=== PATIENT | male | born 1975 | race Caucasian/White ===

== ENCOUNTER → 2021-12-12 | Outpatient (CLI) | payer OTHER | LOC: M WHC 07:29 | PROVIDERS: ATTEND Family Medicine | DX: R94.5 Abnormal results of liver function studies (principal) ==

== ENCOUNTER → 2022-01-08 | Outpatient (CLI) | payer OTHER ==
[~2022-01-08] MED LIST: CETI-24 PO; FAMO40TA3 PO; MULT-40 PO; OMEP-173 PO
== END ==
LOC: M PLALAB 14:47
PROVIDERS: ATTEND Family Medicine
DX: A53.9 Syphilis, unspecified (principal)
CPT/HCPCS: 36415; 86592; 86780; 96372; J0561

== ENCOUNTER → 2022-01-10 | Outpatient (CLI) | payer OTHER | LOC: M LABSMTC 10:02 | PROVIDERS: ATTEND Anesthesiology | DX: Z01.812 Encounter for preprocedural laboratory examination (principal); Z20.822 Contact with and (suspected) exposure to COVID-19 ==

== ENCOUNTER 2022-01-15 08:43 | Day surgery (SDC) | payer OTHER ==
[~2022-01-15] VITALS: Ht 182.9 cm; Wt 98.9 kg
[~2022-01-15 08:43] MED LIST changes: +NS 1,000 ML IV ONE
[2022-01-15 10:55] VITALS: BP 125/84
== END 2022-01-15 11:00 | disposition home or self-care (01) ==
LOC: M OPP 08:43 → EDUNIT# 10:30 → M OPP 11:00
PROVIDERS: ATTEND Surgery
DX: Z12.11 Encounter for screening for malignant neoplasm of colon (principal); K63.5 Polyp of colon; K64.0 First degree hemorrhoids; G47.33 Obstructive sleep apnea (adult) (pediatric); Z99.89 Dependence on other enabling machines and devices; Z79.1 Long term (current) use of non-steroidal anti-inflammatories (NSAID); Z88.1 Allergy status to other antibiotic agents; Z88.2 Allergy status to sulfonamides

== ENCOUNTER 2022-04-24 05:14 | Emergency (ER) | payer OTHER ==
[~2022-04-24] VITALS: Ht 182.9 cm; Wt 104.8 kg
[~2022-04-24 05:14] MED LIST changes: -NS 1,000 ML IV ONE
[2022-04-24] MEDS ORDERED: KETOROLAC 30 MG/ML 1ML VIAL IM ONE (07:30)
[2022-04-24] MEDS ORDERED: methocarbamoL 500 MG TAB PO ONE (07:30)
[2022-04-24] MEDS ORDERED: LIDOCAINE 5% (LIDODERM) PATCH TD ONE (07:30)
[2022-04-24] MEDS ORDERED: LIDO5DIS41 TOP (08:16)
[2022-04-24] MEDS ORDERED: METH-1164 PO (08:16)
[2022-04-24] MEDS ORDERED: MEDR4PAK PO (09:29)
[2022-04-24] MEDS ORDERED: PERCOCET 5MG/325MG TAB PO ONE (09:35)
[2022-04-24] MEDS ORDERED: PERC5TAB12 PO ×4 (10:18→10:42)
[2022-04-24 11:06] VITALS: BP 142/84
[2022-04-24] MEDS ORDERED: **NOTE PATIENT COMMENT** MISC XX SCH (21:00)
== END 2022-04-24 11:07 | disposition home or self-care (01) ==
LOC: M ED 05:14
DX: M51.16 Intervertebral disc disorders with radiculopathy, lumbar region (principal); G47.30 Sleep apnea, unspecified; K21.9 Gastro-esophageal reflux disease without esophagitis; Z88.1 Allergy status to other antibiotic agents; Z88.2 Allergy status to sulfonamides; Z79.899 Other long term (current) drug therapy
CPT/HCPCS: 72110; 96372; 99283; J1885

== ENCOUNTER → 2022-07-21 | Outpatient (CLI) | payer OTHER ==
[~2022-07-21] MED LIST changes: +LIDO5DIS41 TOP; +MEDR4PAK PO; +METH-1164 PO; +PERC5TAB12 PO
== END ==
LOC: M LABSMTC 11:02
PROVIDERS: ATTEND Anesthesiology
DX: Z01.812 Encounter for preprocedural laboratory examination (principal); Z11.52 Encounter for screening for COVID-19

== ENCOUNTER 2022-07-25 12:03 | Day surgery (SDC) | payer OTHER ==
[~2022-07-25] VITALS: Ht 182.9 cm; Wt 107.0 kg
[~2022-07-25 12:03] MED LIST changes: +NS 1,000 ML IV ONE
[2022-07-25] MEDS ORDERED: propofoL 200 MG/20 ML VIAL As Ordered ONE (12:58)
[2022-07-25 14:25] VITALS: BP 140/91
== END 2022-07-25 14:30 | disposition home or self-care (01) ==
LOC: M OPP 12:03
PROVIDERS: ATTEND Surgery
DX: K22.89 Other specified disease of esophagus (principal); K29.60 Other gastritis without bleeding; M19.90 Unspecified osteoarthritis, unspecified site; G47.30 Sleep apnea, unspecified; Z99.89 Dependence on other enabling machines and devices; Z79.1 Long term (current) use of non-steroidal anti-inflammatories (NSAID); Z79.52 Long term (current) use of systemic steroids; Z79.83 Long term (current) use of bisphosphonates; Z79.899 Other long term (current) drug therapy; Z88.1 Allergy status to other antibiotic agents; Z88.2 Allergy status to sulfonamides

== ENCOUNTER 2024-05-10 16:13 | Emergency (ER) | payer OTHER ==
[~2024-05-10] VITALS: Ht 182.9 cm; Wt 119.0 kg
[~2024-05-10 16:13] MED LIST changes: -NS 1,000 ML IV ONE
[2024-05-10] MEDS ORDERED: MELO15TA28 (16:26)
[2024-05-10 18:02] LABS: BASO % 0.2 % (0.0-1.0); EOS % 0.2 % (0.0-3.0); HEMATOCRIT 40.7 % (42.0-52.0); HEMOGLOBIN 14.7 g/dl (13.5-17.5); LYMPH # 1.2 10^3/uL (1.5-5.0); LYMPH % 26.3 % (24.0-44.0); MEAN CORPUSCULAR HEMOGLOBIN 30.7 pg (27.0-33.0); MEAN CORPUSCULAR HGB CONC 36.1 g/dl (32.0-36.5); MONO # 0.3 10^3/uL (0.0-0.8); MONO % 6.8 % (2.0-8.0); NEUTROPHILS % 66.3 % (36.0-66.0); PLATELET COUNT, AUTOMATED 221 10^3/uL (150-450); RED BLOOD COUNT 4.79 10^6/uL (4.30-6.10); WHITE BLOOD COUNT 4.6 10^3/uL (4.0-10.0)
[2024-05-10 18:14] LABS: INR 1.07; PROTHROMBIN TIME 13.6 SECONDS (12.5-14.5)
[2024-05-10 18:34] LABS: ALBUMIN 4.3 G/DL (3.2-5.2); BILIRUBIN,DIRECT 0.2 MG/DL (<0.4); BILIRUBIN,TOTAL 0.9 MG/DL (0.3-1.2); TOTAL PROTEIN 7.7 G/DL (5.7-8.2)
[2024-05-10] MEDS: NS 1,000 ML IV ONE (18:37)
[2024-05-10] MEDS: PANTOPRAZOLE 40MG VIAL IV ONE (18:37)
[2024-05-10] MEDS ORDERED: ANUS25SU PR (19:45)
[2024-05-10 20:06] VITALS: BP 158/93; TEMP 98; O2SAT 99
== END 2024-05-10 20:08 | disposition home or self-care (01) ==
LOC: M ED 16:13
DX: K92.2 Gastrointestinal hemorrhage, unspecified (principal); K21.9 Gastro-esophageal reflux disease without esophagitis; I10 Essential (primary) hypertension; Z88.1 Allergy status to other antibiotic agents; Z88.2 Allergy status to sulfonamides; Z79.899 Other long term (current) drug therapy
CPT/HCPCS: 80047; 80076; 83690; 85025; 85610; 85730; 86850; 86900; 86901; 99284; J2470

== ENCOUNTER 2025-07-01 15:30 | Emergency (ER) | payer OTHER ==
[~2025-07-01] VITALS: Ht 182.9 cm; Wt 116.1 kg
[~2025-07-01 15:30] MED LIST changes: +ANUS25SU PR; +D31000CA6 PO; +LIDO1ADH93 TOP; -LIDO5DIS41 TOP; +LUTERA PO; +MELO15TA28 PO; +OMEP40CA5 PO
[2025-07-01] MEDS ORDERED: NAPR220C14 PO (15:39)
[2025-07-01] MEDS ORDERED: AMOX875T2 PO (15:39)
[2025-07-01 16:09] LABS: BASO # 0.0 10^3/uL (0.0-0.2); BASO % 0.4 % (0.0-1.0); EOS # 0.0 10^3/uL (0.0-0.5); EOS % 0.4 % (0.0-3.0); LYMPH # 1.3 10^3/uL (1.5-5.0); LYMPH % 17.3 % (24.0-44.0); MONO # 0.5 10^3/uL (0.0-0.8); MONO % 6.7 % (2.0-8.0); NEUTROPHILS # 5.7 10^3/uL (1.5-8.5); NEUTROPHILS % 74.9 % (36.0-66.0); PLATELET COUNT, AUTOMATED 256 10^3/uL (150-450)
[2025-07-01 16:31] LABS: C REACTIVE PROTEIN QUANTITATIV 1.15 MG/DL (<1.0); CALCIUM LEVEL 9.4 MG/DL (8.5-10.1); CARBON DIOXIDE LEVEL 27.0 MMOL/L (20-31); CHLORIDE LEVEL 105.0 MMOL/L (98-107); CREATININE FOR GFR 1.1 MG/DL (0.70-1.30); GLOMERULAR FILTRATION RATE 82.3 (>60); POTASSIUM SERUM 4.1 MMOL/L (3.5-5.1); SODIUM LEVEL 143.0 MMOL/L (136-145)
[2025-07-01] MEDS ORDERED: PIPERACILLIN/TAZOBACTAM SOD 3.375 GM in DEXTROSE 5% (D5W) ADV/MINI-BAG 50 ML IV ONE (17:45)
[2025-07-01] MEDS: VANCOMYCIN HCL 2,000 MG, VIAL MATE ADAPTER 1 EACH in NS 500 ML IV ONE (17:58)
[2025-07-01] MEDS: LIDOCAINE 2% MDV 20 ML VIAL SC ONE (18:10)
[2025-07-01 20:17] VITALS: BP 169/94; TEMP 99.6; O2SAT 98
== END 2025-07-01 20:25 | disposition home or self-care (01) ==
LOC: M ED 15:30
DX: L03.012 Cellulitis of left finger (principal); Z88.2 Allergy status to sulfonamides; Z88.8 Allergy status to other drugs, medicaments and biological substances; Z79.1 Long term (current) use of non-steroidal anti-inflammatories (NSAID); Z79.899 Other long term (current) drug therapy; Z79.2 Long term (current) use of antibiotics; Z79.02 Long term (current) use of antithrombotics/antiplatelets
CPT/HCPCS: 80048; 85025; 85652; 86140; 87040; 87070; 87077; 87186; 87205; 99284; J3374

== ENCOUNTER 2025-07-02 22:17 | Inpatient (IN) | payer OTHER ==
[~2025-07-02] VITALS: Ht 182.9 cm; Wt 116.1 kg
[~2025-07-02 22:17] MED LIST changes: +AMOX875T2 PO; +NAPR220C14 PO
[2025-07-02] MEDS: amLODIPine 5 MG TAB PO ONE (23:30)
[2025-07-02 23:37] LABS: BASO # 0.0 10^3/uL (0.0-0.2); BASO % 0.3 % (0.0-1.0); EOS # 0.0 10^3/uL (0.0-0.5); EOS % 0.5 % (0.0-3.0); LYMPH # 1.4 10^3/uL (1.5-5.0); LYMPH % 17.9 % (24.0-44.0); MONO # 0.6 10^3/uL (0.0-0.8); MONO % 8.3 % (2.0-8.0); NEUTROPHILS # 5.6 10^3/uL (1.5-8.5); NEUTROPHILS % 72.7 % (36.0-66.0); PLATELET COUNT, AUTOMATED 224 10^3/uL (150-450)
[2025-07-03] MEDS ORDERED: VANCOMYCIN HCL 1,000 MG in IV FLUID PLACE HOLDER 1 EA IV ONE (03:05)
[2025-07-03] MEDS: PIPERACILLIN/TAZOBACTAM SOD 4.5 GM in DEXTROSE 5% (D5W) ADV/MINI-BAG 50 ML IV ONE (03:17)
[2025-07-03] MEDS ORDERED: MOM 30 ML SUSPENSION UDC PO PRN (03:20)
[2025-07-03] MEDS ORDERED: ACET-910 PO (05:03)
[2025-07-03] MEDS ORDERED: ATOR40TA75 PO (05:03)
[2025-07-03] MEDS ORDERED: HOME MED LIST COMPLETE! XX SCH (05:05)
[2025-07-03] MEDS: VANCOMYCIN HCL 2,000 MG, VIAL MATE ADAPTER 1 EACH in NS 500 ML IV ONE (05:16)
[2025-07-03 05:27] LABS: BASO # 0.0 10^3/uL (0.0-0.2); BASO % 0.4 % (0.0-1.0); EOS # 0.1 10^3/uL (0.0-0.5); EOS % 0.7 % (0.0-3.0); LYMPH # 1.5 10^3/uL (1.5-5.0); LYMPH % 20.2 % (24.0-44.0); MONO # 0.7 10^3/uL (0.0-0.8); MONO % 9.4 % (2.0-8.0); NEUTROPHILS # 5.0 10^3/uL (1.5-8.5); NEUTROPHILS % 69.2 % (36.0-66.0); PLATELET COUNT, AUTOMATED 212 10^3/uL (150-450)
[2025-07-03 05:41] LABS: ALT/SGPT 36 U/L (7.0-40); AST/SGOT 37 U/L (<34); C REACTIVE PROTEIN QUANTITATIV 7.39 MG/DL (<1.0); CALCIUM LEVEL 8.7 MG/DL (8.5-10.1); CARBON DIOXIDE LEVEL 24 MMOL/L (20-31); CHLORIDE LEVEL 105 MMOL/L (98-107); CREATININE FOR GFR 0.85 MG/DL (0.70-1.30); GLOMERULAR FILTRATION RATE > 90.0 (>60); POTASSIUM SERUM 3.9 MMOL/L (3.5-5.1); SODIUM LEVEL 141 MMOL/L (136-145)
[2025-07-03] MEDS: DOCUSATE SODIUM 100 MG CAPSULE PO SCH (09:00)
[2025-07-03] MEDS ORDERED: PROHANCE 279.3MG/ML 15ML VIAL As Ordered ONE (11:29)
[2025-07-03] MEDS ORDERED: PROHANCE 279.3MG/ML 5ML VIAL As Ordered ONE (11:29)
[2025-07-03] MEDS: VANCOMYCIN HCL 1,000 MG, VIAL MATE ADAPTER 1 EACH in NS 250 ML IV SCH (13:02)
[2025-07-03 15:55] VITALS: BP 148/90; TEMP 98.7; O2SAT 99
[2025-07-03] MEDS: ACETAMINOPHEN 325 MG TAB PO PRN (15:58)
[2025-07-03 20:00] VITALS: BP 156/89; TEMP 98.5; O2SAT 97
[2025-07-04 04:00] VITALS: BP 134/87; TEMP 98.2; O2SAT 96
[2025-07-04 06:01] LABS: PLATELET COUNT, AUTOMATED 219 10^3/uL (150-450)
[2025-07-04 06:24] LABS: C REACTIVE PROTEIN QUANTITATIV 4.53 MG/DL (<1.0)
[2025-07-04 06:37] LABS: ALT/SGPT 30 U/L (7.0-40); AST/SGOT 25 U/L (<34); CALCIUM LEVEL 8.7 MG/DL (8.5-10.1); CARBON DIOXIDE LEVEL 27 MMOL/L (20-31); CHLORIDE LEVEL 106 MMOL/L (98-107); CREATININE FOR GFR 0.79 MG/DL (0.70-1.30); GLOMERULAR FILTRATION RATE > 90.0 (>60); POTASSIUM SERUM 4.2 MMOL/L (3.5-5.1); SODIUM LEVEL 143 MMOL/L (136-145)
[2025-07-04] MEDS: FLUZONE VACCINE TRI PF(25-26) 0.5ML SYRINGE IM.IMMUN ONE (09:34)
[2025-07-04 09:35] VITALS: BP 158/89
[2025-07-04] MEDS: amLODIPine 5 MG TAB PO SCH (09:35)
[2025-07-04] MEDS ORDERED: ZYVO1TAB PO (11:14)
[2025-07-04 12:00] VITALS: BP 167/88; TEMP 99.8; O2SAT 97
[2025-07-04 13:00] VITALS: BP 146/85
== END 2025-07-04 13:06 | disposition home or self-care (01) | DRG 603 ==
LOC: M ED 22:17 → M ED INP 07-03 03:12 → M MS4PR 07-03 15:50
PROVIDERS: ADMIT Student in an Organized Health Care Education/Training Program; ATTEND Internal Medicine
DX: L03.012 Cellulitis of left finger (principal); L02.512 Cutaneous abscess of left hand; I10 Essential (primary) hypertension; G47.33 Obstructive sleep apnea (adult) (pediatric); K21.9 Gastro-esophageal reflux disease without esophagitis; M19.90 Unspecified osteoarthritis, unspecified site; I16.0 Hypertensive urgency; L08.9 Local infection of the skin and subcutaneous tissue, unspecified; M54.30 Sciatica, unspecified side; Z88.2 Allergy status to sulfonamides; Z88.8 Allergy status to other drugs, medicaments and biological substances; Z79.899 Other long term (current) drug therapy